=== PATIENT | male | born 1970 | race Hispanic/Latino ===

== ENCOUNTER 2018-09-15 22:54 | Emergency (ER) | payer OTHER, SELFPAY ==
[2018-09-15 23:49] LABS: APPEARANCE,URINE TURBID (CLEAR); BILIRUBIN,URINE NEGATIVE (NEGATIVE); COLOR,URINE YELLOW (YELLOW); GLUCOSE, URINE (UA) NEGATIVE (NEGATIVE); KETONES,URINE NEGATIVE (NEGATIVE); LEUKOCYTE ESTERASE ,URINE TRACE (NEGATIVE); NITRATE,URINE POSITIVE (NEGATIVE); OCCULT BLOOD,URINE LARGE (NEGATIVE); PROTEIN,URINE 100 mg/dL (NEGATIVE); UROBILINOGEN,URINE 0.2 mg/dL (0.2-1.0)
[2018-09-15 23:54] LABS: BASOPHILS % (AUTO) 0.9 % (0.0-5.0); EOSINOPHILS % (AUTO) 0.7 % (0.0-8.0); HEMATOCRIT 43.6 % (42-54); MEAN CORPUSCULAR HEMOGLOBIN 28.3 pg (27.0-33.0); MEAN CORPUSCULAR HGB CONC 33.6 g/dL (32.0-36.0); MEAN CORPUSCULAR VOLUME 84.3 fL (79-99); MONOCYTES % (AUTO) 11.9 % (3.0-13.0); NEUTROPHILS % (AUTO) 69.5 % (40.0-77.0); PLATELET COUNT (AUTO) 239 K/uL (130-400); RED BLOOD CELL COUNT(AUTO) 5.18 MIL/uL (4.50-6.20); WHITE BLOOD COUNT (AUTO) 15.5 K/uL (4.8-10.8)
[2018-09-15 23:57] LABS: RBC,URINE 26-50 /HPF (0-1)
[2018-09-15 23:58] LABS: BACTERIA,URINE Moderate /HPF (None Seen); SPERM,URINE Few /HPF (None Seen); WBC,URINE 26-50 /HPF (0-1)
[2018-09-16] MEDS ORDERED: LIDOCAINE HCL-MPF 1% 2ML VIAL ONE (00:05)
[2018-09-16] MEDS ORDERED: CEFTRIAXONE SODIUM 1 GM ONE (00:05)
[2018-09-16 00:06] LABS: CREATININE 1.1 mg/dL (0.5-1.5); POTASSIUM 3.4 mmol/L (3.5-5.1)
[2018-09-16 00:11] LABS: ALBUMIN 3.8 g/dL (3.5-5.0); BILIRUBIN,TOTAL 0.8 mg/dL (0.2-1.0); TOTAL PROTEIN, SERUM 7.7 g/dL (6.0-8.3)
== END 2018-09-16 01:25 | disposition home or self-care (01) ==
LOC: EDH 22:54
DX: N39.0 Urinary tract infection, site not specified (principal); E86.0 Dehydration
CPT/HCPCS: 36415; 80053; 81001; 85025; 87077; 87088; 87186; 96372; 99284; J0696; J3490

== ENCOUNTER 2021-08-29 11:45 | Inpatient (IN) | payer OTHER ==
[~2021-08-29] VITALS: Ht 167.6 cm; Wt 93.1 kg
[2021-08-29 12:23] LABS: BASOPHILS % (AUTO) 0.1 % (0.0-5.0); EOSINOPHILS % (AUTO) 0.5 % (0.0-8.0); HEMATOCRIT 46.8 % (42-54); MEAN CORPUSCULAR HEMOGLOBIN 29.4 pg (27.0-33.0); MEAN CORPUSCULAR VOLUME 86.7 fL (79-99); MONOCYTES % (AUTO) 14.3 % (3.0-13.0); NEUTROPHILS % (AUTO) 66.7 % (40.0-77.0); PLATELET COUNT (AUTO) 265 K/uL (130-400); RED CELL DISTRIBUTION WIDTH 12.3 % (11.0-15.5); WHITE BLOOD COUNT (AUTO) 8.1 K/uL (4.8-10.8)
[2021-08-29 12:24] LABS: APPEARANCE,URINE Clear (CLEAR); BILIRUBIN,URINE Small (NEGATIVE); COLOR,URINE Dark Yellow (YELLOW); GLUCOSE, URINE (UA) Negative (NEGATIVE); KETONES,URINE Trace mg/dL (NEGATIVE); LEUKOCYTE ESTERASE ,URINE Small (NEGATIVE); NITRATE,URINE Positive (NEGATIVE); OCCULT BLOOD,URINE Negative (NEGATIVE); PH,URINE 6.5 (5.0-8.0); PROTEIN,URINE POS 1+ mg/dL (NEGATIVE)
[2021-08-29] MEDS ORDERED: KETOROLAC 30MG VIAL (30MG/ML) IVP ONE (12:30)
[2021-08-29] MEDS ORDERED: ONDANSETRON 4MG INJ IVP ONE (12:30)
[2021-08-29 12:39] LABS: BACTERIA,URINE Rare /HPF (None Seen); RBC,URINE 0-1 /HPF (0-1); SQUAMOUS EPITHELIAL CELL,UR Rare /HPF (0-2); WBC,URINE 0-1 /HPF (0-1)
[2021-08-29 12:42] LABS: ALBUMIN 3.6 g/dL (3.5-5.0); BILIRUBIN,TOTAL 1.9 mg/dL (0.2-1.0); TOTAL PROTEIN, SERUM 8.1 g/dL (6.0-8.3)
[2021-08-29] MEDS: CEFTRIAXONE 1G VIAL IVP SCH (13:25)
[2021-08-29] MEDS ORDERED: 0.9%NACL 1000ML 1,000 ML IV SCH (14:00)
[2021-08-29] MEDS: ZOSYN 3.375GM +NS 50ML IV SCH ×2 (14:16→22:21)
[2021-08-29] MEDS ORDERED: ACETAMINOPHEN 325 MG TAB PO PRN ×2 (17:30)
[2021-08-29] MEDS ORDERED: ONDANSETRON 4MG INJ IV PRN (17:30)
[2021-08-29] MEDS ORDERED: ACETAMINOPHEN WITH CODEINE 1 TAB TAB PO PRN (17:30)
[2021-08-29] MEDS ORDERED: LEVOFLOXACIN 500 MG/D5W 100 ML 100 ML IV SCH (18:00)
[2021-08-29] MEDS: 0.9%NACL 1000ML 1,000 ML IV SCH (18:11)
[2021-08-29 18:42] LABS: ALBUMIN 3.1 g/dL (3.5-5.0); BILIRUBIN,DIRECT 0.3 mg/dL (0.0-0.3); BILIRUBIN,TOTAL 1.5 mg/dL (0.2-1.0)
[2021-08-29] MEDS: FAMOTIDINE 20MG TAB PO SCH (20:27)
[2021-08-29] MEDS: METRONIDAZOLE 500MG/100ML BAG 100 ML IVPB SCH (21:19)
[2021-08-30] VITALS (30 sets, daily range): BP systolic 136–175; BP diastolic 77–97
[2021-08-30] MEDS: ACETAMINOPHEN WITH CODEINE 1 TAB TAB PO PRN ×2 (00:54→06:06)
[2021-08-30 05:28] LABS: CHOLESTEROL 114 mg/dL (<200); HDL CHOLESTEROL 42 mg/dL (29-71); LDL DIRECT 67 mg/dL (0-99); TRIGLYCERIDES 51 mg/dL (30-200)
[2021-08-30] MEDS: ZOSYN 3.375GM +NS 50ML IV SCH ×3 (05:47→23:04)
[2021-08-30] MEDS: METRONIDAZOLE 500MG/100ML BAG 100 ML IVPB SCH ×3 (05:58→21:37)
[2021-08-30] MEDS: ENOXAPARIN SODIUM 40 MG/0.4 ML SYRINGE SQ SCH (09:00)
[2021-08-30] MEDS: FAMOTIDINE 20MG TAB PO SCH ×2 (09:00→21:37)
[2021-08-30] MEDS: 0.9%NACL 1000ML 1,000 ML IV SCH ×2 (13:22→21:38)
[2021-08-30] MEDS: CEFTRIAXONE 1G VIAL IVP SCH (14:03)
[2021-08-30] MEDS ORDERED: BUPIVACAINE/EPI/PF 0.5% 30ML VIAL IJ ONE (16:23)
[2021-08-30] MEDS ORDERED: LIDOCAINE HCL 1% MDV 50ML VIAL ONE (16:23)
[2021-08-30] MEDS ORDERED: MIDAZOLAM HCL 1 MG/ML 2ML VIAL ONE (16:42)
[2021-08-30] MEDS ORDERED: LIDOCAINE PF 100MG/5ML (2%) SYRINGE 5ML ONE (16:42)
[2021-08-30] MEDS ORDERED: SUCCINYLCHOLINE CHLORIDE 20 MG/ML 10 ML VIAL ONE (16:42)
[2021-08-30] MEDS ORDERED: FENTANYL CITRATE PF 50 MCG/1 ML 2ML VIAL ONE ×2 (16:43→17:12)
[2021-08-30] MEDS ORDERED: ROCURONIUM 10MG/1ML SYR 10 MG/ML ML ONE (16:43)
[2021-08-30] MEDS ORDERED: PROPOFOL 10 MG/ML 20ML VIAL IV ONE ×3 (16:43→18:07)
[2021-08-30] MEDS ORDERED: CEFAZOLIN SODIUM 1 GM VIAL ONE (17:14)
[2021-08-30] MEDS ORDERED: MEPERIDINE-PF 25 MG/ML SYG ONE ×2 (18:53→19:22)
[2021-08-30] MEDS ORDERED: HYDROMORPHONE 1 MG INJ ONE (21:34)
[2021-08-30] MEDS ORDERED: HYDROMORPHONE 1 MG INJ IVP PRN (22:00)
[2021-08-30] MEDS ORDERED: OXYCODONE/ACETAMIN 5/325MG TAB PO PRN (22:00)
[2021-08-30] MEDS: KETOROLAC 30MG VIAL (30MG/ML) IVP SCH (23:05)
[2021-08-31] VITALS: BP 145/73
[2021-08-31 03:25] VITALS: BP 122/70
[2021-08-31 05:09] LABS: MEAN CORPUSCULAR HGB CONC 34.8 g/dL (32.0-36.0); MEAN CORPUSCULAR VOLUME 86.4 fL (79-99); RED BLOOD CELL COUNT(AUTO) 4.63 MIL/uL (4.50-6.20); WHITE BLOOD COUNT (AUTO) 8.8 K/uL (4.8-10.8)
[2021-08-31] MEDS: METRONIDAZOLE 500MG/100ML BAG 100 ML IVPB SCH ×2 (05:09→14:00)
[2021-08-31] MEDS: KETOROLAC 30MG VIAL (30MG/ML) IVP SCH ×2 (05:10→10:43)
[2021-08-31 05:31] LABS: CREATININE 0.8 mg/dL (0.5-1.5)
[2021-08-31] MEDS: ZOSYN 3.375GM +NS 50ML IV SCH ×2 (06:23→13:55)
[2021-08-31 07:30] VITALS: BP 130/63
[2021-08-31] MEDS: FAMOTIDINE 20MG TAB PO SCH (08:50)
[2021-08-31] MEDS: ENOXAPARIN SODIUM 40 MG/0.4 ML SYRINGE SQ SCH (08:51)
[2021-08-31 11:00] VITALS: BP 126/74
[2021-08-31] MEDS: CEFTRIAXONE 1G VIAL IVP SCH (13:00)
[2021-08-31] MEDS ORDERED: METR-172 PO (14:07)
[2021-08-31] MEDS ORDERED: LEVO750T46 PO (14:07)
== END 2021-08-31 15:30 | disposition home or self-care (01) | DRG 418 ==
LOC: EDH 11:45 → EDHIP 14:02 → OBSVTOIN 14:02 → 3BH 23:24
PROVIDERS: ADMIT Hospitalist; ATTEND Hospitalist
PROC: 0FT44ZZ Resection of Gallbladder, Percutaneous Endoscopic Approach (ICD-10-PCS; principal; 2021-08-30 16:46)
DX: K80.00 Calculus of gallbladder with acute cholecystitis without obstruction (principal); N39.0 Urinary tract infection, site not specified; Z20.822 Contact with and (suspected) exposure to COVID-19; E66.9 Obesity, unspecified; I10 Essential (primary) hypertension; Z68.31 Body mass index [BMI] 31.0-31.9, adult; K82.8 Other specified diseases of gallbladder
CPT/HCPCS: 36415; 71045; 74176; 80048; 80053; 80061; 80076; 81001; 83690; 84484; 85025; 85027; 87088; 87635; G0378; J0330; J0690; J0696; J1170; J1650; J1885; J1956; J2001; J2175; J2250; J2405; J2543; J2704; J3010; J3490; J7030

== ENCOUNTER 2022-08-28 20:43 | Inpatient (IN) | payer OTHER, SELFPAY ==
[~2022-08-28] VITALS: Ht 167.6 cm; Wt 86.0 kg
[~2022-08-28 20:43] MED LIST: LEVO750T68 PO; METR-172 PO
[2022-08-28 22:17] LABS: BASOPHILS % (AUTO) 0.2 % (0.0-5.0); EOSINOPHILS % (AUTO) 0.2 % (0.0-8.0); HEMATOCRIT 44.6 % (42-54); LYMPHOCYTES % (AUTO) 6.4 % (21.0-51.0); MEAN CORPUSCULAR HEMOGLOBIN 29.9 pg (27.0-33.0); MEAN CORPUSCULAR HGB CONC 34.8 g/dL (32.0-36.0); MEAN CORPUSCULAR VOLUME 86.1 fL (79-99); MONOCYTES % (AUTO) 6.1 % (3.0-13.0); NEUTROPHILS % (AUTO) 86.7 % (40.0-77.0); PLATELET COUNT (AUTO) 236 K/uL (130-400); RED BLOOD CELL COUNT(AUTO) 5.18 MIL/uL (4.50-6.20); RED CELL DISTRIBUTION WIDTH 12.7 % (11.0-15.5); WHITE BLOOD COUNT (AUTO) 12.6 K/uL (4.8-10.8)
[2022-08-28 22:35] LABS: ALBUMIN 3.9 g/dL (3.5-5.0); POTASSIUM 3.6 mmol/L (3.5-5.1); TOTAL PROTEIN, SERUM 7.2 g/dL (6.0-8.3)
[2022-08-28] MEDS ORDERED: ZOSYN 3.375GM +NS 50ML IVPB ONE (23:30)
[2022-08-29] LABS: APPEARANCE,URINE CLEAR (CLEAR); BILIRUBIN,URINE NEGATIVE (NEGATIVE); COLOR,URINE LIGHT-YELLOW (YELLOW); GLUCOSE, URINE (UA) NEGATIVE (NEGATIVE); KETONES,URINE NEGATIVE (NEGATIVE); LEUKOCYTE ESTERASE ,URINE NEGATIVE Leu/uL (NEGATIVE); NITRATE,URINE NEGATIVE (NEGATIVE); OCCULT BLOOD,URINE NEGATIVE (NEGATIVE); PROTEIN,URINE NEGATIVE (NEGATIVE); UROBILINOGEN,URINE 0.2 mg/dL (0.2-1.0)
[2022-08-29 00:03] LABS: MUCUS,URINE RARE LPF (None Seen); RBC,URINE 0-1 /HPF (0-1); SQUAMOUS EPITHELIAL CELL,UR RARE /HPF (0-2); WBC,URINE 0-1 /HPF (0-1)
[2022-08-29] MEDS ORDERED: ONDANSETRON 4MG INJ IV PRN (00:30)
[2022-08-29] MEDS ORDERED: LACTULOSE 20 GM/30 ML UDCUP PO PRN (00:30)
[2022-08-29] MEDS ORDERED: ACETAMINOPHEN 325 MG TAB PO PRN ×2 (00:30)
[2022-08-29] MEDS ORDERED: MORPHINE 2 MG SYG IV PRN (00:30)
[2022-08-29] MEDS: 0.9%NACL 1000ML 1,000 ML IV SCH ×3 (00:38→20:56)
[2022-08-29 04:30] VITALS: BP 145/94
[2022-08-29] MEDS: ZOSYN 3.375GM+NS 50ML 50 ML IVPB SCH ×3 (05:20→20:56)
[2022-08-29 08:00] VITALS: BP 164/90
[2022-08-29] MEDS: FAMOTIDINE 20MG VIAL IV SCH ×2 (11:00→20:56)
[2022-08-29 12:00] VITALS: BP 139/85
[2022-08-29 16:00] VITALS: BP 155/75
[2022-08-29 20:00] VITALS: BP 139/80
[2022-08-29 23:05] VITALS: BP 156/89
[2022-08-30 03:39] VITALS: BP 137/88
[2022-08-30] MEDS: ZOSYN 3.375GM+NS 50ML 50 ML IVPB SCH ×2 (04:30→16:13)
[2022-08-30 05:30] LABS: BASOPHILS % (AUTO) 0.2 % (0.0-5.0); EOSINOPHILS % (AUTO) 0.8 % (0.0-8.0); LYMPHOCYTES % (AUTO) 20.1 % (21.0-51.0); MEAN CORPUSCULAR HEMOGLOBIN 30.1 pg (27.0-33.0); MEAN CORPUSCULAR HGB CONC 34.1 g/dL (32.0-36.0); MEAN CORPUSCULAR VOLUME 88.2 fL (79-99); MONOCYTES % (AUTO) 10.4 % (3.0-13.0); NEUTROPHILS % (AUTO) 68.3 % (40.0-77.0); PLATELET COUNT (AUTO) 210 K/uL (130-400); RED BLOOD CELL COUNT(AUTO) 4.99 MIL/uL (4.50-6.20); RED CELL DISTRIBUTION WIDTH 12.8 % (11.0-15.5); WHITE BLOOD COUNT (AUTO) 8.4 K/uL (4.8-10.8)
[2022-08-30 05:51] LABS: ALBUMIN 3.3 g/dL (3.5-5.0); CREATININE 1.1 mg/dL (0.5-1.5); POTASSIUM 3.9 mmol/L (3.5-5.1); TOTAL PROTEIN, SERUM 6.6 g/dL (6.0-8.3)
[2022-08-30] MEDS: 0.9%NACL 1000ML 1,000 ML IV SCH (05:53)
[2022-08-30 08:00] VITALS: BP 151/84
[2022-08-30] MEDS: FAMOTIDINE 20MG VIAL IV SCH (08:25)
[2022-08-30 12:00] VITALS: BP 149/99
[2022-08-30] MEDS ORDERED: LEVO-70 PO (13:00)
[2022-08-30] MEDS ORDERED: METR-172 PO (13:00)
[2022-08-30 16:00] VITALS: BP 146/92
== END 2022-08-30 19:35 | disposition home or self-care (01) | DRG 687 ==
LOC: EDH 20:43 → EDHIP 20:44 → 3CH 08-29 04:49
PROVIDERS: ADMIT Hospitalist; ATTEND Hospitalist
DX: C64.1 Malignant neoplasm of right kidney, except renal pelvis (principal); K57.32 Diverticulitis of large intestine without perforation or abscess without bleeding; I10 Essential (primary) hypertension; K59.00 Constipation, unspecified; E66.09 Other obesity due to excess calories; Z68.30 Body mass index [BMI] 30.0-30.9, adult
CPT/HCPCS: 36415; 74177; 78306; 80053; 81001; 83605; 84153; 85025; 86140; A9503; G0378; J2543; J3490; J7030